=== PATIENT | male | born 1985 | race African-American/Black ===

== ENCOUNTER 2025-08-19 13:05 | Emergency (ER) | payer MEDICAID ==
[~2025-08-19] VITALS: Ht 190.5 cm; Wt 82.0 kg
[2025-08-19 13:16] VITALS: O2SAT 99
[2025-08-19] MEDS ORDERED: DEXAMETHASONE 1 MG/ML ORAL SYR PO ONE (16:00)
[2025-08-19] MEDS: DEXAMETHASONE 4MG TABLET PO SCH (16:42)
[2025-08-19] MEDS: VISCOUS LIDOCAINE 2% 15 ML UDC MM STA (16:43)
[2025-08-19] MEDS: BENZONATATE 200MG CAPSULE PO ONE (16:43)
[2025-08-19] MEDS ORDERED: BENZ100C86 MT (18:00)
[2025-08-19] MEDS ORDERED: IBUP-1455 MT (18:00)
[2025-08-19 18:15] VITALS: BP 132/78; PULSE 68; RESP 18; TEMP 36.7; O2SAT 99
== END 2025-08-19 18:15 | disposition home or self-care (01) ==
LOC: ER 14:21
DX: J06.9 Acute upper respiratory infection, unspecified (principal); B97.89 Other viral agents as the cause of diseases classified elsewhere
CPT/HCPCS: 99284; 71045; J8540

== ENCOUNTER 2025-08-27 11:24 | Emergency (ER) | payer MEDICAID ==
[~2025-08-27] VITALS: Ht 185.4 cm; Wt 79.0 kg
[~2025-08-27 11:24] MED LIST: BENZ100C86 MT; IBUP-1455 MT
[2025-08-27 11:28] VITALS: O2SAT 99
[2025-08-27 11:35] VITALS: BP 123/78; PULSE 80; RESP 16; TEMP 36.9; O2SAT 100
[2025-08-27 12:02] LABS: CLARITY URINE CLEAR (CLEAR); COLOR URINE YELLOW (YELLOW); GLUCOSE URINE NEGATIVE (NEGATIVE); KETONES URINE NEGATIVE (NEGATIVE); LEUKOCYTE ESTERASE URINE NEGATIVE (NEGATIVE); NITRITE URINE NEGATIVE (NEGATIVE); OCCULT BLOOD URINE NEGATIVE (NEGATIVE); PH URINE 6.0 (4.5-8.0); PROTEIN URINE NEGATIVE (NEGATIVE); SPECIFIC GRAVITY URINE 1.011 (1.005-1.030); UROBILINOGEN URINE 1.0 E.U./dL (0.2-1.0)
== END 2025-08-27 12:55 | disposition left against medical advice (07) ==
LOC: ER 11:24
DX: R10.9 Unspecified abdominal pain (principal)
CPT/HCPCS: 81003; 99281; 99282; 99283